=== PATIENT | female | born 1945 | race Caucasian/White ===

== ENCOUNTER → 2019-12-24 14:59 | Outpatient (CLI) | payer MEDICARE, OTHER, SELFPAY ==
--- NOTE | 2019-12-24 15:03 | DI.RAD.S_ITS ---
PROCEDURE: XR LUMBAR SPINE MIN 4V INDICATIONS: LBP TECHNIQUE: 4 views of the lumbar spine were acquired. COMPARISON: Located Within [facility], , L-SPINE 2-3 VIEWS, 11/19/2011, 10:29. FINDINGS: Bones: 5 nonrib-bearing vertebrae are present. Patient is status post right posterior fusion at L3-4 level. No gross hardware loosening or failure is seen. There is mild to moderate dextroscoliosis centered at L3-4 level. Degenerative endplate changes and bilateral facet arthrosis throughout lumbar spine is seen.. No vertebral body compression fractures. No suspicious bony lesions. Soft tissues: Overlying bowel gas pattern is normal. No suspicious soft tissue calcifications. Oblique images: No pars defects. IMPRESSION: Prior right transpedicular fusion at L3-4 level. Mild to moderate dextroscoliosis centered at L3-4 level. No acute fracture or dislocation. No gross hardware complication. Degenerative disc disease throughout lumbar spine. No gross pars defect. Dictated by: Malik Rayo M.D. on 12/24/2019 at 16:46 Approved by: Malik Rayo M.D. on 12/24/2019 at 16:48
== END ==
PROVIDERS: PCP Family Medicine; Referring Provider Family Medicine; Visit Provider Physical Medicine & Rehabilitation
DX: S39.012A Strain of muscle, fascia and tendon of lower back, initial encounter (principal); M41.86 Other forms of scoliosis, lumbar region; M51.36 Other intervertebral disc degeneration, lumbar region; Z98.1 Arthrodesis status
CPT/HCPCS: 72110

== ENCOUNTER → 2020-03-24 12:02 | Outpatient (CLI) | payer MEDICARE, OTHER, SELFPAY ==
--- NOTE | 2020-03-24 12:06 | DI.MRI.S_ITS ---
PROCEDURE: MR LUMBAR SPINE WO CON INDICATIONS: Chronic progressive low back pain status post fusion TECHNIQUE: Noncontrast sagittal T1 spin echo and T2 fast echo, sagittal STIR, axial T1 and T2 fast spin echo through the lumbar spine. In cases with scoliosis, additional coronal T2 fast spin echo may be performed. COMPARISON: 07/30/16. FINDINGS: Image quality: Excellent. Alignment and Curvature: Mild levocurvature centered at L2-L3. Left posterior lateral solomon and pedicle screw fixation at L3-L4. Trace degenerative anterolisthesis of L4 on L5. Trace degenerative retrolisthesis of L2 on L3. Bone Marrow: Marrow is of normal overall signal. No acute vertebral body compression fractures. Spinal Cord: Conus medullaris terminates at the L1-L2 level. Visualized cord demonstrates normal signal and size. Paraspinous Soft Tissues: No paravertebral masses. T11-T12: No canal stenosis or foraminal stenosis. T12-L1: Mild disc bulge. Mild facet hypertrophy. No canal stenosis or foraminal stenosis. L1-L2: Mild disc bulge. Facet hypertrophy. No canal stenosis or foraminal stenosis. L2-L3: Posterior disc bulge. Prominent facet and ligament hypertrophy, right greater than left. Moderate canal stenosis, severe right lateral recess stenosis aerated moderate right foraminal stenosis with flattening deformity and the existing right L2 nerve root. L3-L4: Left posterior lateral solomon and pedicle screw fixation. Facet hypertrophy. Mild canal stenosis. Mild right foraminal stenosis. L4-L5: Disc bulge. Prominent facet and ligament hypertrophy. Interval progression of canal stenosis, now severe. Mild bilateral foraminal stenosis. L5-S1: Disc bulge, facet and ligament hypertrophy. Mild to moderate left foraminal stenosis with mild flattening deformity on the exiting right L5 nerve root. IMPRESSION: 1. Remote left posterior lateral fusion at L3-L4. 2. Moderate canal stenosis at L2-L3, mild canal stenosis at L3-4. 3. Interval progression of canal stenosis at L4-L5, now severe. Dictated by: Rafal Blas M.D. on 03/24/2020 at 13:25 Approved by: Rafal Blas M.D. on 03/24/2020 at 13:36
== END ==
PROVIDERS: PCP Family Medicine; Referring Provider Physical Medicine & Rehabilitation; Visit Provider Physical Medicine & Rehabilitation
DX: M48.061 Spinal stenosis, lumbar region without neurogenic claudication (principal); Z98.1 Arthrodesis status
CPT/HCPCS: 72148

== ENCOUNTER → 2021-04-30 13:21 | Outpatient (CLI) | payer MEDICARE, OTHER, SELFPAY ==
[2021-04-30 15:42] LABS: COVID19 -Nasal RAPID Negative (Negative)
== END ==
PROVIDERS: PCP Family Medicine; Visit Provider Physician Assistant
DX: Z01.812 Encounter for preprocedural laboratory examination (principal); Z20.822 Contact with and (suspected) exposure to COVID-19
CPT/HCPCS: 87635; C9803

== ENCOUNTER 2021-05-01 14:32 | Outpatient (CLI) | payer MEDICARE, OTHER, SELFPAY ==
[2021-05-01] VITALS (8 sets, daily range): BP systolic 150–196; BP diastolic 55–81; PULSE 68–87; RESP 13–18; TEMP 36.1; O2SAT 95–99
--- NOTE | 2021-05-01 14:35 | DI.RAD.S_ITS ---
PROCEDURE: PAIN L/S TRANSFORAMINAL INJECT INDICATIONS: SPONDYLOSIS COMPARISON: None. FINDINGS: Fluoroscopic spot filming was performed to verify placement of spinal needles at the lumbosacral level(s), as labeled on the films. Appropriate location(s) of the needle tip(s) was confirmed by injection of iodinated contrast. IMPRESSION: Needle placement at the lumbosacral level. Dictated by: Veda Carroll M.D. on 05/01/2021 at 16:50 Approved by: Veda Carroll M.D. on 05/01/2021 at 16:50
[2021-05-01] MEDS: MIDAZOLAM 5 MG/5 ML VIAL IV (15:31)
[2021-05-01] MEDS: fentaNYL 100 MCG/2 ML INJ 50 MCG IV (15:31)
[2021-05-01] MEDS: IOPAMIDOL 15 ML VIAL 3 ML INJ (15:34)
[2021-05-01] MEDS: BETAMETHASONE 30 MG/5 ML MDV 6 MG INJ (15:35)
[2021-05-01] MEDS: BUPIVACAINE 0.25% (PF) VIAL 2 ML INJ (15:35)
[2021-05-01] MEDS: DEXAMETHASONE 10 MG/ML VIAL 20 MG INJ (15:36)
--- NOTE | 2021-05-01 15:49 | P.PCN_ITS ---
Date/Time/Diagnoses Date of procedure: 05/01/21 Time of procedure: 15:49 Pre-procedure diagnosis: FORAMINAL STENOSIS WITH LE SYMPTOMS Post-procedure diagnosis: same Procedure Notes Procedure: 1. FLUOROSCOPICALLY GUIDED CONTRAST CONTROLLED TRANSFORAMINAL EPIDURAL STEROID INJECTION - RIGHT L5/S1 TFESI Indications: Selena is referred by Dr. Matthews and Elvia for treatment of Foraminal Stenosis with Right LE Symptoms Physician: Kyrie Madden Total Fluoroscopy time (seconds): 13 Total sedation minutes: 12 Complications: none Procedure in detail & Post-procedure care: FINDINGS Foraminal Nerve Root Compression secondary to disc disease and facet hypertrophy DESCRIPTION OF PROCEDURE Following review of allergy and review of potential side effects and complications, including, but not necessarily limited to, infection, allergic reaction, local tissue breakdown, stroke, temporary or permanent nerve injury, paralysis, and possible , the patient indicated that the patient understood and agreed to proceed. An informed consent document was signed by the patient, witnessed by a nurse, and placed in the patient's chart. Additionally, other treatment options including medications, modalities, and physical therapy were reviewed with the patient. After review of previous anaesthesic history and IV conscious sedation the patient was deemed safe to proceed with today?s procedure with IV conscious sedation as ASA class II designation. Safety time-out was performed to confirm patient ID, procedure to be performed and site of procedure. IV sedation was accomplished with a combination of 2mg of Versed and 50mcg of Fentanyl was administered by the RN after DO order, titrated to patient comfort during the course of the procedure while the patient remained responsive to all verbal commands In the prone position following sterile prep and drape of the lumbar region, the right L5/S1 posterior neuroforamen was identified fluoroscopically. The skin was anesthetized via a 25-gauge 1.5-inch needle with 1% lidocaine solution. At this point, a 25-gauge 3.5-inch spinal needle was atraumatically introduced and advanced under fluoroscopic guidance through the posterior right L5/S1 neuroforamen to approximately the anterior aspect of the canal. Depth was confirmed on lateral view. Following negative aspiration, injection of approximately 1.5cc of Isovue 200 under live fluoroscopy in the AP view confirmed excellent flow along the nerve root, into the epidural space without vascular or intrathecal uptake observed Radiological data, including multiple fluoroscopic views of the lumbosacral spine, reveal a spinal needle at the right L5/S1 posterior neuroforamen. Subsequent views show flow of contrast material flowing superiorly and inferiorly along the nerve root confirming epidural flow. Subsequently, a test dose of 1.5 cc of 1% lidocaine solution was administered and patient was observed for two minutes for signs or symptoms of complications, including abdominal pain, shortness of breath, bilateral upper or lower extremity weakness, nausea and vomiting, prior to steroid injection. At this point, a total of 3cc or 20mg of dexamethasone and 6mg of betamethasone was injected without incident. The procedure tolerated the procedure well without signs or symptoms of complications prior to transfer to the recovery area continued monitoring without incident. The patient was then transferred to the recovery area where they were observed for an appropriate time after the injection. The patient reported a VAS score of 7 prior to the procedure and a post- procedure VAS of 0. POST OP INSTRUCTIONS The patient was provided a Pain Log to continue to record their response to the target-specific procedure prior to follow-up visit with their referring physician. Additionally, specific post-injection care instructions and a contact number to our office were provided if concerns arise regarding possible complications associated with the procedure are suspected.
--- NOTE | 2021-05-01 16:26 | PC.NURSE ---
Patient with bilateral lower extremity weakness. Attempt to stand unsuccessful.
--- NOTE | 2021-05-01 16:52 | PC.NURSE ---
Dr. Madden's attempted to stand patient. Slightly improved strength but still unable to hold her weight longer than a few seconds without wavering. Daughter Sona updated on discharge status.
== END 2021-05-01 17:28 | disposition home or self-care (01) ==
LOC: RAD 14:34
PROVIDERS: PCP Family Medicine; Referring Provider Physical Medicine & Rehabilitation; Visit Provider Physical Medicine & Rehabilitation
DX: M48.07 Spinal stenosis, lumbosacral region (principal); M51.17 Intervertebral disc disorders with radiculopathy, lumbosacral region
CPT/HCPCS: 64483; 99152; J0702; J1100; J2250; J3010

== ENCOUNTER 2022-05-31 08:59 | Emergency (ER) | payer MEDICARE, OTHER, SELFPAY ==
[2022-05-31 09:33] VITALS: BP 185/78; PULSE 77; RESP 18; TEMP 36.6; O2SAT 98; BMI 33.4
--- NOTE | 2022-05-31 09:38 | DI.RAD.S_ITS ---
PROCEDURE: XR WRIST RT MIN 3V INDICATIONS: pain TECHNIQUE: 4 views of the wrist were acquired. COMPARISON: None. FINDINGS: Bones: No fractures or dislocations. No suspicious bony lesions. Scaphoid view: Scaphoid is intact. Soft tissues: No suspicious soft tissue calcifications. IMPRESSION: No fracture. No osseous lesion. If symptoms and/or clinical suspicion for pathology persists, further assessment with repeat radiographs (7-10 days) or advanced imaging (e.g. CT, MRI or bone scan) should be considered. Dictated by: Emelina Quinones MD, PhD on 05/31/2022 at 9:58 Approved by: Emelina Quinones MD, PhD on 05/31/2022 at 9:59
--- NOTE | 2022-05-31 10:04 | ED.UPPEXIN ---
HPI - Extremity Injury (Upper) General Chief Complaint: Extremity Injury, Upper Stated Complaint: Right wrist pain Time Seen by Provider: 05/31/22 10:04 Source: patient Mode of arrival: Ambulatory History of Present Illness HPI narrative: Patient is a evans 68 female history of hypertension diabetes presenting today with chronic ongoing right wrist pain. She says progressively getting worse. 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 She is quite upset because her is disabled from stroke when she has to do all the cooking and hurts. She has been taking Aleve and meloxicam for without any relief. She denies numbness or tingling. Related Data Home Medications Medication Instructions Recorded Confirmed metformin 500 mg tablet,extended 1,000 mg PO BID ##0 11/14/11 03/15/20 release 24 hr (Glucophage XR) blood sugar diagnostic ##1 03/15/20 03/15/20 levothyroxine 75 mcg tablet mcg PO DAILY 03/15/20 03/15/20 metformin 1,000 mg tablet mg PO DAILY 03/15/20 03/15/20 Previous Rx's Medication Instructions Recorded diazepam 5 mg tablet 5 mg PO .COMPLEX PRN MRI #7 tabs 03/15/20 gabapentin 300 mg capsule 300 mg PO .COMPLEX #90 caps 06/21/21 hydrocodone 5 mg-acetaminophen 325 1 tab PO Q6H PRN pain #10 tabs 05/31/22 mg tablet Allergies Allergy/AdvReac Type Severity Reaction Status Date / Time No Known Drug Allergies Allergy Unverified 03/15/20 11:24 Review of Systems Review of Systems Narrative: GENERAL: Denies chills,fever HEENT: Denies throat pain RESPIRATORY: Denies dyspnea, cough, wheezing CARDIOVASCULAR: Denies chest pain, palpitations GASTROINTESTINAL: Denies nausea, vomiting MUSCULOSKELETAL: See HPI SKIN: No rash, no laceration, no pruritus NEUROLOGIC: Denies weakness, dizziness, headache, numbness 8 point review of systems is negative except for those stated above and HPI Patient History Medical History Diabetes Herniated nucleus pulposus, L2-3 Lumbar radiculopathy Multilevel spinal stenosis Surgical History History of lumbar fusion Family History Father Pancreatic cancer Heart disease Mother Aneurysm Brother Diabetes mellitus Heart attack End stage kidney disease Social History Smoking Status: Never smoker Smoking Status: Never smoker Exam Initial Vital Signs Initial Vital Signs: Vital Signs Temperature 98 F 05/31/22 09:33 Pulse Rate 77 05/31/22 09:33 Respiratory Rate 18 05/31/22 09:33 Blood Pressure 185/78 H 05/31/22 09:33 Pulse Oximetry 98 05/31/22 09:33 Oxygen Delivery Method 05/31/22 09:33 GENERAL: Well-appearing, well-nourished and in no acute distress. CARDIOVASCULAR: peripheral pulses in tact, cap refill <2 sec RESPIRATORY: No respiratory distress, speaks in full sentences without difficulty EXTREMITIES: Normal range of motion, no clubbing or edema. Neurovascularly intact Mild right wrist pain no significant swelling or erythema able to flex and extend. Able to move all fingers distal radial pulse intact NEUROLOGICAL: Cranial nerves II through XII grossly intact. Normal gait and speech. SKIN: Warm, dry, no petechiae, no rashes or lesions. Course Orders Ordered: ED Orders 05/31/22 09:38 XR wrist RT min 3V Stat Vital Signs Vital signs: Vital Signs - 8 hr 05/31/22 09:33 Temperature 98 F Pulse Rate 77 Respiratory Rate 18 Blood Pressure 185/78 H Pulse Oximetry 98 Oxygen Delivery Method Room Air MDM - Extremity Injury (Upper) Imaging Data Extremity x-ray #1: Radiologist's Impression: [facility] [place] [id number] XRay Report Signed Patient: Selena Danielson MR#: [id number] : 1945 Acct:[id number] Age/Sex: 76 / F Date of Service: 05/31/22 Loc: ED Accession Number: [id number] ?? Procedure: XR wrist RT min 3V Ordering Provider: Samara Roberson D.O. PROCEDURE:? XR WRIST RT MIN 3V ? INDICATIONS: pain ? TECHNIQUE:? 4 views of the wrist were acquired.? ? COMPARISON:? None. ? FINDINGS:? ? Bones:? No fractures or dislocations.? No suspicious bony lesions.? ? Scaphoid view:? Scaphoid is intact. ? Soft tissues:? No suspicious soft tissue calcifications.? ? IMPRESSION:? No fracture. No osseous lesion. If symptoms and/or clinical suspicion for pathology persists, further assessment with repeat radiographs (7-10 days) or advanced imaging (e.g. CT, MRI or bone scan) should be considered. ? ? Dictated by: Emelina Quinones MD, PhD on 05/31/2022 at 9:58 ? ? MDM Narrative Medical decision making narrative: At this time patient is taking meloxicam 15 mg along with leave. She needs something stronger she is already wearing a wrist brace. However it is quite old. Will give her a new 1 and something stronger for pain Discharge Plan Departure Patient Disposition: Home Clinical Impression: Sprain and strain of right wrist Instructions: Wrist Sprain Activity Restrictions/Additional Instructions: *You have been diagnosed with right wrist sprain *What to do: At this time wear splint as needed. Elevate ice. Rest and let it heal *Continue to take medications as directed Meloxicam 15 mg once a day (do not take Aleve, ibuprofen, naproxen, Motrin or other NSAIDS with this) [place] 1 tablet every 6 hours if needed for severe pain- SENT TO [facility] Tylenol 650 mg at every 6 hours if needed for [id number] *Follow up with your primary care provider in 2-3 days or call [phone] *Return to ER if you should have increasing pain swelling weakness [or] any new, worsening or concerning symptoms CONTROLLED SUBSTANCE DISCHARGE (Narcotoic/benzodiazepine/Flexeril/Phenergan) 1. You have been prescribed narcotic medications, it does have acetaminophen/Tylenol/paracetamol in it, DO NOT TAKE MORE THAN 4,00mg in 24 hours of Tylenol. TRAMADOL DOES NOT CONTAIN TYLENOL 2. Please understand that we cannot provide further refills of narcotics, benzodiazepines or controlled substances through the ED and her pain management will need to be through your provider. 3. While on these medications you cannot drive or operate heavy machinery. 4. You cannot sign legal documents or perform any duties such as this. 5. As long as you're taking opiate pain medications he should also be taking a stool softener such as Colace, Dulcolax, MiraLAX or prune juice, to help avoid constipation. Prescriptions: New hydrocodone-acetaminophen 5-325 mg tablet 1 tab PO Q6H PRN (Reason: pain) Qty: 10 0RF No Action metformin [Glucophage XR] 500 MG tablet extended release 24 hr 1,000 mg PO BID Qty: 0 gabapentin 300 mg capsule 300 mg PO .COMPLEX Qty: 90 2RF Rx Instructions: 1-2 PO Tid to begin at HS and titrate to pain relief metformin 1,000 mg tablet PO DAILY levothyroxine 75 mcg tablet PO DAILY (DME) blood sugar diagnostic Strip See Rx Instructions .ROUTE .MEDSUPPLY Qty: 1 Rx Instructions: As directed diazepam 5 mg tablet 5 mg PO .COMPLEX PRN (Reason: MRI) Qty: 7 0RF Rx Instructions: 5 mg PO 1-2 tabs pre-procedure and 1 tab npcturnally for possible steroid flare PRN; Referrals: Sekou Anna MD [Primary Care Provider] - Visit Report Forms: Patient Portal/API
== END 2022-05-31 10:34 | disposition home or self-care (01) ==
PROVIDERS: Emergency Provider Emergency Medicine; PCP Orthopaedic Surgery
DX: S63.501A Unspecified sprain of right wrist, initial encounter (principal); S66.911A Strain of unspecified muscle, fascia and tendon at wrist and hand level, right hand, initial encounter
CPT/HCPCS: 73110; 99282; 99283

== ENCOUNTER 2022-10-03 09:26 | Emergency (ER) | payer MEDICARE, OTHER, SELFPAY ==
[2022-10-03 09:58] VITALS: BP 160/79; PULSE 98; RESP 15; TEMP 36.4; O2SAT 99; BMI 29.2
--- NOTE | 2022-10-03 12:02 | PC.NURSE ---
pt states she has had tailbone pain for 1.5 months. she has history of chronic back pain but this is different, she has seen a doctor and been prescribed muscle relaxors, these are not helping, she needs to schedule an appointment for an epidural pain injection but has not been able to so far. she is also having troubles with constipation for about one month. LBM yesterday. she states it is sometimes just mucous that comes out but she does not take stool softeners and laxatives because it does come out, it just feels hard and sometimes she cant go right away
--- NOTE | 2022-10-03 12:06 | DI.CT.S_ITS ---
PROCEDURE: CT ABDOMEN PELVIS W CON INDICATIONS: Lower abdominal pain TECHNIQUE: After the administration of intravenous contrast, axial sections acquired from the lung bases to the pubic symphysis. Coronal and sagittal reformats were performed. For radiation dose reduction, the following was used: automated exposure control, adjustment of mA and/or kV according to patient size. COMPARISON: None. FINDINGS: Image quality: Adequate. Lung bases: No pleural effusion. ABDOMEN: Liver: Unremarkable. Gallbladder: Surgically absent. Biliary ducts: Unremarkable. Pancreas: Unremarkable. Spleen: Unremarkable. Adrenal Glands: Unremarkable. Kidneys and Ureters: No hydronephrosis. Stomach and Bowel: No bowel obstruction. Moderate predominantly sigmoid colonic diverticulosis without evidence of acute diverticulitis. Peritoneum: No abnormal intraperitoneal fluid. No free air. Abdominal Nodes: No retroperitoneal or mesenteric adenopathy by size criteria. Vessels: Aorta and inferior vena cava are normal in size. PELVIS: Pelvic Organs: The uterus is not visualized and is presumed surgically absent. Bladder: Unremarkable. Pelvic Nodes: No enlarged lymph nodes. Bones: Multilevel degenerative change of the visualized spine. Postsurgical changes from prior L2-L5 fusion. IMPRESSION: 1. No acute appearing abnormality identified within the abdomen or pelvis. 2. Moderate colonic diverticulosis without evidence of acute diverticulitis. Dictated by: Andrae Aaron M.D. on 10/03/2022 at 13:19 Approved by: Andrae Aaron M.D. on 10/03/2022 at 13:33
--- NOTE | 2022-10-03 12:07 | ED_ITS ---
HPI - Extremity Problem General Chief complaint: Extremity Problem,Nontraumatic Stated complaint: tail bone pain,stomach pain,soft/hard BM Time Seen by Provider: 10/03/22 11:43 Source: patient Mode of arrival: Wheelchair History of Present Illness HPI Narrative: Patient here for abdominal pain/constipation also has complaints of sacral/ coccyx pain. Patient has long history of chronic back pain. Has had lumbar surgery. Has had epidural shots in the past. Please see MRI reports below as well as lumbar injection procedures below. Patient states this episode started with sacral/coccyx pain 1 month ago. Saw family doctor but she states no medications or procedures or images or tests were ordered. She followed up recently again with another provider in the group and baclofen was prescribed and referral for epidural was started but no appointment time has been established. No loss of control of bowel or bladder. No saddle paresthesia. Patient states she is developed mucousy stool in the past 2 or 4 weeks. Has had intermittent constipation but no diarrhea. She is having bowel movements. No recent colonoscopy. No leg or foot weakness. Patient [place] [address] Magnetic Resonance Report Signed Patient: Selena Danielson MR#: [id number] : 1945 Acct:[id number] Age/Sex: 74 / F Date of Service: 03/24/20 Loc: MRI Accession Number: [id number] ?? Procedure: MR lumbar spine wo con Ordering Provider: Kyrie Madden D.O. PROCEDURE:? MR LUMBAR SPINE WO CON ? INDICATIONS:? Chronic progressive low back pain status post fusion ? TECHNIQUE:? Noncontrast sagittal T1 spin echo and T2 fast echo, sagittal STIR, axial T1 and T2 fast spin echo through the lumbar spine.? In cases with scoliosis, additional coronal T2 fast spin echo may be performed.? ? COMPARISON: 07/30/16. ? FINDINGS:? Image quality:? Excellent.? ? Alignment and Curvature: Mild levocurvature centered at L2-L3. Left posterior lateral solomon and pedicle screw fixation at L3-L4. Trace degenerative anterolisthesis of L4 on L5. Trace degenerative retrolisthesis of L2 on L3. ? Bone Marrow:? Marrow is of normal overall signal.? No acute vertebral body compression fractures.? ? Spinal Cord:? Conus medullaris terminates at the L1-L2 level.? Visualized cord demonstrates normal signal and size.? ? Paraspinous Soft Tissues:? No paravertebral masses. ? T11-T12: No canal stenosis or foraminal stenosis. ? T12-L1: Mild disc bulge. Mild facet hypertrophy. No canal stenosis or foraminal stenosis. ? ? L1-L2: Mild disc bulge. Facet hypertrophy. No canal stenosis or foraminal sten osis. ? L2-L3: Posterior disc bulge. Prominent facet and ligament hypertrophy, right greater than left. Moderate canal stenosis, severe right lateral recess stenosis aerated moderate right foraminal stenosis with flattening deformity and the existing right L2 nerve root. ? L3-L4: Left posterior lateral solomon and pedicle screw fixation. Facet hypertrophy. Mild canal stenosis. Mild right foraminal stenosis. ? L4-L5: Disc bulge. Prominent facet and ligament hypertrophy. Interval progression of canal stenosis, now severe. Mild bilateral foraminal stenosis. ? L5-S1: Disc bulge, facet and ligament hypertrophy. Mild to moderate left foraminal stenosis with mild flattening deformity on the exiting right L5 nerve root. ? IMPRESSION: 1. Remote left posterior lateral fusion at L3-L4. 2. Moderate canal stenosis at L2-L3, mild canal stenosis at L3-4. 3. Interval progression of canal stenosis at L4-L5, now severe. ? Dictated by: Rafal Blas M.D. on 03/24/2020 at 13:25 ? ? Approved by: Rafal Blas M.D. on 03/24/2020 at 13:36 ? [address] [address] XRay Report Signed Patient: Selena Danielson MR#: [id number] : 1945 Acct:[id number] Age/Sex: 75 / F Date of Service: 05/01/21 Loc: RAD Accession Number: [id number] ?? Procedure: PAIN l/s transforaminal inject Ordering Provider: Kyrie Madden D.O. PROCEDURE:? PAIN L/S TRANSFORAMINAL INJECT ? INDICATIONS:? SPONDYLOSIS ? COMPARISON:? None. ? FINDINGS:? Fluoroscopic spot filming was performed to verify placement of spinal needles at the lumbosacral level(s), as labeled on the films.? Appropriate location(s) of the needle tip(s) was confirmed by injection of iodinated contrast.? ? IMPRESSION:? Needle placement at the lumbosacral level. ? ? Dictated by: Veda Carroll M.D. on 05/01/2021 at 16:50 ? ? Approved by: Veda Carroll M.D. on 05/01/2021 at 16:50 ? Related Data Home Medications Medication Instructions Recorded Confirmed metformin 500 mg tablet,extended 1,000 mg PO BID ##0 11/14/11 03/15/20 release 24 hr (Glucophage XR) blood sugar diagnostic ##1 03/15/20 03/15/20 levothyroxine 75 mcg tablet mcg PO DAILY 03/15/20 03/15/20 metformin 1,000 mg tablet mg PO DAILY 03/15/20 03/15/20 Previous Rx's Medication Instructions Recorded diazepam 5 mg tablet 5 mg PO .COMPLEX PRN MRI #7 tabs 03/15/20 gabapentin 300 mg capsule 300 mg PO .COMPLEX #90 caps 06/21/21 hydrocodone 5 mg-acetaminophen 325 1 tab PO Q6H PRN pain #10 tabs 05/31/22 mg tablet Allergies Allergy/AdvReac Type Severity Reaction Status Date / Time No Known Drug Allergies Allergy Verified 10/03/22 09:58 Review of Systems Review of Systems Narrative: GENERAL: negative chills, fatigue, malaise, fever, sweats. HEENT: negative sinus pain, ear pain, sore throat RESPIRATORY: negative dyspnea, cough CARDIOVASCULAR: negative chest pain, palpitations GASTROINTESTINAL: negative nausea, vomiting, positive diarrhea/constipation/abdominal pain : negative dysuria, frequency, hematuria MUSCULOSKELETAL: negative muscle or bony pain, positive back pain SKIN: negative rash, skin lesions NEUROLOGIC: negative weakness, numbness Patient History Medical History Diabetes Herniated nucleus pulposus, L2-3 Lumbar radiculopathy Multilevel spinal stenosis Surgical History History of lumbar fusion Family History Father Pancreatic cancer Heart disease Mother Aneurysm Brother Diabetes mellitus Heart attack End stage kidney disease Social History Smoking Status: Never smoker Smoking Status: Never smoker alcohol intake frequency: holidays/special occasions only Substance Use Type: does not use Exam Narrative Exam Narrative: GENERAL: in no distress, not toxic not dyspneic, 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 EYES: Pupils equal round No scleral icterus. ENT: Mucous membranes moist. NECK: Trachea midline. CARDIOVASCULAR: Regular rate and rhythm without murmurs RESPIRATORY: Clear to auscultation. Breath sounds equal bilaterally. No wheezes, rales, or rhonchi. GASTROINTESTINAL: Abdomen soft, non-tender, bowel sounds are present no peritoneal signs no pain out of proportion to exam EXTREMITIES: No gross deformities. BACK: No flank tenderness. There is reproducible midline lower sacral/upper coccyx tenderness but no pilonidal cyst or abscess or fluctuance, no overlying skin erythema edema or ulcer. NEURO: AOx4. SKIN: Warm and dry PSYCH: Not anxious, is cooperative Initial Vital Signs Initial Vital Signs: Vital Signs Temperature 97.5 F L 10/03/22 09:58 Pulse Rate 98 H 10/03/22 09:58 Respiratory Rate 15 10/03/22 09:58 Blood Pressure 160/79 H 10/03/22 09:58 Pulse Oximetry 99 10/03/22 09:58 Oxygen Delivery Method 10/03/22 09:58 Course Course Course Narrative: No new issues during course of stay Orders Ordered: ED Orders 10/03/22 12:06 CT abdomen pelvis w con Stat Complete Blood Count AUTO DIFF Stat Comprehensive Metabolic Panel Stat Discontinued Medications Ketorolac Tromethamine (Ketorolac 30 Mg/Ml Vial) 15 mg IV NOW ONE Stop: 10/03/22 13:21 Last Admin: 10/03/22 14:02 Dose: 15 mg Documented By: NR Reevaluation(s) Reevaluation #1: Patient resting comfortably with her eyes closed lying supine. Reviewed results with patient. She states her last colonoscopy was over 10 years ago. She states she will need a referral and I have given her general surgery Dr. Pruett referral for colonoscopy. Exam and imaging and blood work are reassuring. Pain is controlled. She will follow up with her family doctor to find out scheduling time for her epidural shots Time: 14:02 Vital Signs Vital signs: Vital Signs - 8 hr 10/03/22 14:21 Temperature 98.1 F Pulse Rate 66 Respiratory Rate 16 Blood Pressure 146/62 H Pulse Oximetry 100 Oxygen Delivery Method Room Air MDM - Extremity (Nontraumatic) Differential Diagnosis Differential diagnosis: Likely other (Pilonidal cyst/sacral/coccyx fracture/chronic pain of the back. Bowel obstruction/constipation/colitis) Lab Data Result diagrams: 10/03/22 12:06 10/03/22 12:06 Labs: Lab Results 10/03/22 10/03/22 Range/Units 12:06 12:06 WBC 6.8 (4.5-11.0) X10^3/uL RBC 4.20 (4.0-5.2) X10^6/uL Hgb 12.9 (12.0-16.0) g/dL Hct 37.5 (36-46) % MCV 89.4 (80-100) fL MCH 30.7 (26-34) PG MCHC 34.4 (30-36) % RDW 13.7 (11.6-14.8) % Plt Count 243 (150-400) X10^3/uL Neut % (Auto) 63.1 (50-75) % Lymph % (Auto) 28.0 (25-40) % Gilliam % (Auto) 5.5 (3-14) % Eos % (Auto) 2.3 (2-4) % Baso % (Auto) 1.1 (0-2) % Neut # (Auto) 4300 (6870-3481) /uL Lymph # (Auto) 1900 (3064-1245) /uL Gilliam # (Auto) 400 (0-900) /uL Eos # (Auto) 200 (0-450) /uL Baso # (Auto) 100 (0-100) /uL Sodium 137 (137-145) mmol/L Potassium 3.5 (3.4-5.1) mmol/L Chloride 103 (98-107) mmol/L Carbon Dioxide 29 (22-32) mmol/L BUN 11 (7-17) mg/dL Creatinine 0.65 (0.52-1.04) mg/dL Estimated GFR > 60 (>60) mL/min BUN/Creatinine Ratio 16.9 (6-22) Glucose 135 H (80-110) mg/dL Calcium 9.1 (8.4-10.2) mg/dL Total Bilirubin 0.5 (0.2-1.3) mg/dL AST 19 (14-36) IU/L ALT 21 (<35) IU/L Alkaline Phosphatase 66 (38-126) U/L Total Protein 7.0 (6.3-8.2) g/dL Albumin 3.9 (3.5-5.0) g/dL Globulin 3.1 (1.7-4.1) g/dL Albumin/Globulin Ratio 1.3 (1.0-2.8) Imaging Data CT scan - abdomen/pelvis: Radiologist's Impression: [address] [address] [address] Scan Report Signed Patient: Selena Danielson MR#: [id number] : 1945 Acct:[id number] Age/Sex: 77 / F Date of Service: 10/03/22 Loc: ED Accession Number: [id number] ?? Procedure: CT abdomen pelvis w con Ordering Provider: Obie Boss MD PROCEDURE:? CT ABDOMEN PELVIS W CON ? INDICATIONS:? Lower abdominal pain ? TECHNIQUE:? After the administration of intravenous contrast, axial sections acquired from the lung bases to the pubic symphysis.? Coronal and sagittal reformats were performed.? For radiation dose reduction, the following was used:? automated exposure control, adjustment of mA and/or kV according to patient size.? ? COMPARISON:? None. ? FINDINGS:? Image quality:? Adequate. ? Lung bases:? No pleural effusion. ? ABDOMEN: Liver:? Unremarkable.? ? Gallbladder:? Surgically absent.? ? Biliary ducts:? Unremarkable.? ? Pancreas:? Unremarkable.? ? Spleen:? Unremarkable.? ? Adrenal Glands:? Unremarkable.? ? Kidneys and Ureters:? No hydronephrosis. ? Stomach and Bowel:? No bowel obstruction.? Moderate predominantly sigmoid colonic diverticulosis without evidence of acute diverticulitis. Peritoneum:? No abnormal intraperitoneal fluid.? No free air.? ? Abdominal Nodes:? No retroperitoneal or mesenteric adenopathy by size criteria.? Vessels:? Aorta and inferior vena cava are normal in size.? ? PELVIS: Pelvic Organs:? The uterus is not visualized and is presumed surgically absent. Bladder:? Unremarkable.? ? Pelvic Nodes: No enlarged lymph nodes.? ? Bones:? Multilevel degenerative change of the visualized spine.? Postsurgical changes from prior L2-L5 fusion. ? ? IMPRESSION:? 1. No acute appearing abnormality identified within the abdomen or pelvis. 2. Moderate colonic diverticulosis without evidence of acute diverticulitis.? ? ? Dictated by: Andrae Aaron M.D. on 10/03/2022 at 13:19 ? ? Approved by: Andrae Aaron M.D. on 10/03/2022 at 13:33 ? MDM Narrative Medical decision making narrative: Appropriate for discharge home. Exam and laboratory studies and imaging are reassuring. Pain is controlled. Referral general surgery for colonoscopy give n. Return precautions reviewed with patient. She desires discharge home Discharge Plan Departure Patient Disposition: Home Clinical Impression: Chronic back pain, Diverticulosis Instructions: DI for Low Back Pain, DI for Diverticulosis Activity Restrictions/Additional Instructions: Call your family doctor to schedule appointment time for your epidural shots for your back pain. Call Dr. Pruett general surgery office today to schedule for colonoscopy. May continue home medications. Return if worse if any questions or concerns Prescriptions: No Action metformin [Glucophage XR] 500 MG tablet extended release 24 hr 1,000 mg PO BID Qty: 0 gabapentin 300 mg capsule 300 mg PO .COMPLEX Qty: 90 2RF Rx Instructions: 1-2 PO Tid to begin at HS and titrate to pain relief hydrocodone-acetaminophen 5-325 mg tablet 1 tab PO Q6H PRN (Reason: pain) Qty: 10 0RF metformin 1,000 mg tablet PO DAILY levothyroxine 75 mcg tablet PO DAILY (DME) blood sugar diagnostic Strip See Rx Instructions .ROUTE .MEDSUPPLY Qty: 1 Rx Instructions: As directed diazepam 5 mg tablet 5 mg PO .COMPLEX PRN (Reason: MRI) Qty: 7 0RF Rx Instructions: 5 mg PO 1-2 tabs pre-procedure and 1 tab npcturnally for possible steroid flare PRN; Referrals: Simin Augustine PA-C [Primary Care Provider] - Saravanan Pruett MD [Physician] - Visit Report Forms: Patient Portal/API
[2022-10-03 12:29] LABS: Add Manual Diff / Slide Review NO; Basophils Absolute Auto 100 /uL (0-100); Basophils Percent Auto 1.1 % (0-2); Eosinophils Absolute Auto 200 /uL (0-450); Eosinophils Percent Auto 2.3 % (2-4); Hematocrit 37.5 % (36-46); Hemoglobin 12.9 g/dL (12.0-16.0); Lymphocytes Absolute Auto 1900 /uL (1100-4500); Mean Corpuscular HGB Conc 34.4 % (30-36); Mean Corpuscular Hemoglobin 30.7 PG (26-34); Mean Corpuscular Volume 89.4 fL (80-100); Monocytes Absolute Auto 400 /uL (0-900); Monocytes Percent Auto 5.5 % (3-14); Neutrophils Absolute Auto 4300 /uL (1500-7000); Neutrophils Percent Auto 63.1 % (50-75); Platelet Count 243 X10^3/uL (150-400); Red Cell Distribution Width 13.7 % (11.6-14.8); White Blood Cell Count 6.8 X10^3/uL (4.5-11.0)
[2022-10-03 12:36] LABS: Alanine Aminotransferase 21 IU/L (<35); Albumin 3.9 g/dL (3.5-5.0); Albumin Globulin Ratio 1.3 (1.0-2.8); Alkaline Phosphatase 66 U/L (38-126); Aspartate Aminotransferase 19 IU/L (14-36); BUN Creatinine Ratio 16.9 (6-22); Bilirubin Total 0.5 mg/dL (0.2-1.3); Blood Urea Nitrogen 11 mg/dL (7-17); Calcium 9.1 mg/dL (8.4-10.2); Carbon Dioxide 29 mmol/L (22-32); Chloride 103 mmol/L (98-107); Estimated Glomerular Filt Rate > 60 mL/min (>60); Globulin 3.1 g/dL (1.7-4.1); Glucose 135 mg/dL (80-110); HEMOLYSIS < 15 (0-50); Potassium 3.5 mmol/L (3.4-5.1); Sodium 137 mmol/L (137-145)
[2022-10-03] MEDS: KETOROLAC 30 MG/ML VIAL 15 MG IV (14:02)
[2022-10-03 14:21] VITALS: BP 146/62; PULSE 66; RESP 16; TEMP 36.7; O2SAT 100
== END 2022-10-03 14:24 | disposition home or self-care (01) ==
PROVIDERS: Emergency Provider Emergency Medicine; PCP Physician Assistant
DX: M54.50 Low back pain, unspecified (principal); G89.29 Other chronic pain; K57.30 Diverticulosis of large intestine without perforation or abscess without bleeding
CPT/HCPCS: 36415; 74177; 80053; 85025; 96374; 99284; J1885; Q9967

== ENCOUNTER → 2022-10-29 11:33 | Outpatient (CLI) | payer MEDICARE, OTHER, SELFPAY ==
[2022-10-29 12:38] LABS: COVID19 -Nasal RAPID Negative (Negative)
== END ==
PROVIDERS: PCP Physician Assistant; Visit Provider Surgery
DX: Z20.822 Contact with and (suspected) exposure to COVID-19 (principal)
CPT/HCPCS: 87635

== ENCOUNTER 2022-10-29 11:38 | Day surgery (SDC) | payer MEDICARE, OTHER, SELFPAY ==
--- NOTE | 2022-10-29 | PATH_ITS ---
[facility] Accession Number: [id number] . 01 Material submitted: . colon - ASCENDING COLON POLYP . 01 Diagnosis: Ascending Colon, Polyp, Biopsy: Tubular adenoma. [facility] 10/31/2022 1133 Local . 01 Electronically signed: . Kavitha Gregg MD, Pathologist NPI- [id number] . 01 Gross description: . ASCENDING COLON POLYP: Received in formalin are 2 fragment(s) of bloom, soft tissue measuring 0.7 x 0.4 x 0.3 cm to 0.7 x 0.2 x 0.2 cm submitted entirely in 1 cassette(s) /CPE 10/30/2022 0902 Local . 01 Pathologist provided ICD-10: D12.2 . 01 CPT . 025435 Specimen Comment: A courtesy copy of this report has been sent to [phone] Performed at: 01 [facility] [address] [place] [address], [place], [place] [id number] MD Nas Escalona MD Phone: [phone]
[2022-10-29 12:36] VITALS: BP 183/90; PULSE 98; RESP 16; TEMP 36.2; O2SAT 95; BMI 28.3
[2022-10-29] MEDS: LACTATED RINGERS 1,000 ML 200 ML IV (13:04)
--- NOTE | 2022-10-29 14:36 | PM.HP.1 ---
History of Present Illness History of Present Illness Date Patient Seen: 10/29/22 Time Patient Seen: 14:36 [place] [facility] [place]arrative: 77-year-old woman here for diagnostic colonoscopy. She reports altered bowel function for the past several months with what she describes as mucus in her stool as well as constipation which is new for her. She would previous colonoscopy 10 years ago which was normal. No personal or family history of intestinal malignancy. No blood per rectum or unintentional weight loss. Recent CT abdomen pelvis without abnormality Patient History Medical History (Updated 10/29/22 @ 14:38 by Saravanan Pruett MD) Diabetes Herniated nucleus pulposus, L2-3 Lumbar radiculopathy Multilevel spinal stenosis Surgical History (Updated 10/29/22 @ 12:22 by Kori Rios RN) H/O: section H/O: hysterectomy History of back surgery History of bladder suspension procedure History of carpal tunnel surgery History of lumbar fusion History of tonsillectomy Family & Social History Family History Father Pancreatic cancer Heart disease Mother Aneurysm Brother Diabetes mellitus Heart attack End stage kidney disease Social History: household members spouse Tobacco & Substance use: Smoking Status Never smoker alcohol intake frequency holiday/special occasion Substance Use Type does not use Meds Home Medications and Allergies Home Medications Medication Instructions Recorded Confirmed Type blood sugar diagnostic ##1 03/15/20 03/15/20 History metformin 1,000 mg tablet 1,000 mg PO BID 03/15/20 10/29/22 History sodium,potassium,mag sulfates 17.5 See Rx Instructions PO .COMPLEX 10/08/22 10/29/22 Rx gram-3.13 gram-1.6 gram oral soln #354 mL (Suprep Bowel Prep Kit) amlodipine 2.5 mg tablet See Rx Instructions .Route .COMPLEX 10/29/22 10/29/22 History levothyroxine 75 mcg tablet See Rx Instructions .Route .COMPLEX 10/29/22 10/29/22 History (Synthroid) lisinopril 20 mg tablet 20 mg PO DAILY 10/29/22 10/29/22 History meloxicam 15 mg tablet See Rx Instructions .Route .COMPLEX 10/29/22 10/29/22 History sertraline 50 mg tablet 50 mg PO DAILY 10/29/22 10/29/22 History simvastatin 20 mg tablet See Rx Instructions .Route .COMPLEX 10/29/22 10/29/22 History Allergies Allergy/AdvReac Type Severity Reaction Status Date / Time No Known Drug Allergies Allergy Verified 10/29/22 12:22 Exam Vital Signs (past 8 hours): - 10/29/22 12:36 Temperature 97.1 F L Pulse Rate 98 H Respiratory Rate 16 Blood Pressure 183/90 H Pulse Oximetry 95 Oxygen Delivery Method Room Air Oxygen Delivery Method Room Air Narrative Exam Narrative: General elderly woman alert oriented no distress Abdomen soft nontender nondistended Assessment & Plan Assessment and plan (1) Altered bowel function: Status: Acute Assessment & Plan narrative: 77-year-old woman with altered bowel function here for diagnostic colonoscopy. procedural risks including bleeding, missed diagnosis, intestinal perforation, anesthetic complication were discussed. Questions have been answered and she is in agreement with this plan Time Spent With Patient Critical Care time: I spent a total of [] minutes of critical care time on this patient's care today; this time is exclusive of procedural time.
--- NOTE | 2022-10-29 14:45 | PM.OP.COLON ---
Operative Date/Time/Diagnoses Date of procedure: 10/29/22 Time of procedure: 14:45 Pre-op diagnosis: Altered bowel habit Post-op diagnosis: same Procedure & Clinicians Study performed: Colonoscopy Same procedure as scheduled: Yes Indications: Altered bowel function Surgeon: Saraavnan Pruett Procedure Notes Procedure in detail: The history and physical was performed/updated and the patient is ASA class is 3. The procedure was discussed in detail with the patient. Potential risks complications including infection, bleeding, missed diagnosis, perforation, need for surgery, and were explained. Their questions were answered and informed consent was obtained. Patient was brought to the procedure room and placed standard monitoring equipment. The patient's vital signs were monitored continuously throughout the entire procedure. Prior to starting time-out was performed. The patient was placed in the left lateral recumbent position. Procedural sedation was administered by anesthesia. Examination began with a thorough inspection of the perianal area there was no evidence of fissures, fistulae, external hemorrhoids or cutaneous malignancy. The colonoscopy scope was then placed into the anal canal and was advanced to the cecum, which was identified by the ileocecal valve, the appendiceal orifice and the confluence of the taenia. The scope was then slowly withdrawn examining colon thoroughly in all directions, irrigating it of any residual stool. FINDINGS 1. 1 cm flat polyp within the ascending colon removed with cold snare 2. Sigmoid mild diverticulosis The patient tolerated the procedure well. They will be discharged once criteria are met. The prep was of good/excellent quality. The withdrawl time was 8 minutes. Specimen(s): other (Ascending colon polyp) Impression: Colonic polyp Post-procedure Recommendations: High fiber diet Plan for aftercare: Follow-up is dependent on pathology findings Disposition: same day surgery
[2022-10-29 15:09] VITALS: BP 154/67; PULSE 90; RESP 18; TEMP 36.4; O2SAT 96
[2022-10-29 15:14] VITALS: BP 192/88; PULSE 87; RESP 12; O2SAT 97
[2022-10-29 15:19] VITALS: BP 167/90; PULSE 76; RESP 11; O2SAT 99
[2022-10-29 15:30] VITALS: BP 164/88; PULSE 90; RESP 18; O2SAT 98
== END 2022-10-29 15:35 | disposition home or self-care (01) ==
PROVIDERS: PCP Physician Assistant; Referring Provider Surgery; Visit Provider Surgery
PROC: 0DJD8ZZ Inspection of Lower Intestinal Tract, Via Natural or Artificial Opening Endoscopic (ICD-10-PCS; CPT 45378; principal; 2022-10-29 13:30)
DX: K59.00 Constipation, unspecified (principal); R19.5 Other fecal abnormalities; Z20.822 Contact with and (suspected) exposure to COVID-19; E11.9 Type 2 diabetes mellitus without complications; Z79.84 Long term (current) use of oral hypoglycemic drugs; K57.30 Diverticulosis of large intestine without perforation or abscess without bleeding; D12.2 Benign neoplasm of ascending colon
CPT/HCPCS: 45385; 87635; C9803; J2704

== ENCOUNTER → 2023-06-25 11:40 | Outpatient (CLI) | payer MEDICARE, OTHER, SELFPAY ==
--- NOTE | 2023-06-25 11:46 | DI.US.S_ITS ---
PROCEDURE: US CAROTID DOPPLER BI INDICATIONS: HEADACHE/HYPERTENSION TECHNIQUE: Color and pulse Doppler interrogation was performed of both carotid systems, with image documentation and velocity measurements. COMPARISON: None. FINDINGS: Stenosis calculations are based on SRU (Society of Radiologists in Ultrasound) criteria. Right side: Brachial blood pressure: 139/82 mm Hg. Common carotid artery peak systolic velocity: 62 cm/sec. Internal carotid artery peak systolic velocity: 62 cm/sec. Internal carotid artery end diastolic velocity: 14 cm/sec. External carotid artery peak systolic velocity: 81 cm/sec. ICA/CCA peak systolic ratio: 1.0 . Luis scale imaging description: No significant plaque Percent internal carotid artery stenosis: Less than 50% stenosis . Vertebral artery: Flow direction is antegrade. Left side: Brachial blood pressure: 139/73 mm Hg. Common carotid artery peak systolic velocity: 80 cm/sec. Internal carotid artery peak systolic velocity: 72 cm/sec. Internal carotid artery end diastolic velocity: 2 cm/sec. External carotid artery peak systolic velocity: 80 cm/sec. ICA/CCA peak systolic ratio: 1.3 . Luis scale imaging description: minimal plaque. Percent internal carotid artery stenosis: Less than 50% stenosis . Vertebral artery: Flow direction is antegrade. IMPRESSION: Less than 50% stenosis of the bilateral internal carotid arteries. Dictated by: Rory Cruz M.D. on 06/25/2023 at 14:03 Approved by: Rory Cruz M.D. on 06/25/2023 at 14:05
[2023-06-25 12:21] LABS: Hematocrit 39.3 % (36-46); Hemoglobin 13.4 g/dL (12.0-16.0); Mean Corpuscular HGB Conc 34.2 % (30-36); Mean Corpuscular Hemoglobin 28.9 PG (26-34); Mean Corpuscular Volume 84.5 fL (80-100); Neutrophils Percent Auto 72.2 % (50-75); Platelet Count 257 X10^3/uL (150-400); Red Blood Cell Count 4.65 X10^6/uL (4.0-5.2); Red Cell Distribution Width 13.7 % (11.6-14.8); White Blood Cell Count 8.3 X10^3/uL (4.5-11.0)
[2023-06-25 12:22] LABS: Add Manual Diff / Slide Review NO; Basophils Absolute Auto 100 /uL (0-100); Eosinophils Absolute Auto 100 /uL (0-450); Eosinophils Percent Auto 1.5 % (2-4); Lymphocytes Absolute Auto 1700 /uL (1100-4500); Lymphocytes Percent Auto 20.8 % (25-40); Monocytes Absolute Auto 400 /uL (0-900); Monocytes Percent Auto 4.5 % (3-14); Neutrophils Absolute Auto 6000 /uL (1500-7000)
[2023-06-25 12:36] LABS: Erythrocyte Sedimentation Rate 20 MM/HR (0-20)
[2023-06-25 13:32] LABS: Hemoglobin A1C% w Est Avg Glu 7.5 % (4.0-6.0)
[2023-06-25 13:34] LABS: Alanine Aminotransferase 14 IU/L (<35); Albumin 4.2 g/dL (3.5-5.0); Albumin Globulin Ratio 1.5 (1.0-2.8); Alkaline Phosphatase 84 U/L (38-126); Aspartate Aminotransferase 18 IU/L (14-36); BUN Creatinine Ratio 25.4 (6-22); Bilirubin Total 0.4 mg/dL (0.2-1.3); Blood Urea Nitrogen 17 mg/dL (7-17); C-Reactive Protein Quant 1.3 mg/dL (<1.0); Calcium 8.8 mg/dL (8.4-10.2); Carbon Dioxide 26 mmol/L (22-32); Chloride 101 mmol/L (98-107); Cholesterol 248 mg/dL (140-199); Estimated Glomerular Filt Rate > 60 mL/min (>60); Globulin 2.8 g/dL (1.7-4.1); Glucose 188 mg/dL (80-110); HDL Cholesterol 54 mg/dL (40-60); HEMOLYSIS < 15 (0-50); LDL Cholesterol Calculated 148 mg/dL (<100); Potassium 3.2 mmol/L (3.4-5.1); Sodium 140 mmol/L (137-145); Triglycerides 228 mg/dL (35-150)
== END ==
PROVIDERS: PCP Physician Assistant; Referring Provider Physician Assistant; Visit Provider Physician Assistant
DX: G44.89 Other headache syndrome (principal); E11.9 Type 2 diabetes mellitus without complications; I10 Essential (primary) hypertension; I65.23 Occlusion and stenosis of bilateral carotid arteries
CPT/HCPCS: 36415; 80053; 80061; 83036; 85025; 85651; 86140; 93880

== ENCOUNTER → 2023-07-11 06:43 | Outpatient (CLI) | payer MEDICARE, OTHER, SELFPAY ==
--- NOTE | 2023-07-11 | DI.MRI.S_ITS ---
PROCEDURE: MR ANGIO HEAD WO CON INDICATIONS: Other headache syndrome TECHNIQUE: Noncontrast axial 3-D [id number] MR angiogram, with 3-dimensional maximum intensity projection (MIP) reformats of the internal carotid arteries and posterior circulation then performed. COMPARISON: None. FINDINGS: Image quality: Excellent. Anterior circulation: Intracranial internal carotid arteries demonstrate normal size and intraluminal flow signal. The flow within the paired anterior cerebral arteries is normal and symmetric. The flow within the middle cerebral arteries is normal and symmetric. The anterior communicating artery is seen. No stenoses, occlusions, or aneurysms. Posterior circulation: Visualized portions of the vertebral arteries demonstrate normal caliber, and join to form a normal appearing basilar artery. Near origins of the posterior cerebral arteries bilaterally. The flow within the posterior cerebral arteries is normal and symmetric. No stenoses, occlusions, or aneurysms. IMPRESSION: 1. Negative cerebral MR angiography. Dictated by: Veda Carroll M.D. on 07/11/2023 at 8:59 Approved by: Veda Carroll M.D. on 07/11/2023 at 9:00
--- NOTE | 2023-07-11 | DI.MRI.S_ITS ---
PROCEDURE: MR ANGIO NECK W CON INDICATIONS: Other headache syndrome TECHNIQUE: Axial and sagittal TruFISP through the neck. Coronal dynamic MRA after the administration of contrast in the arterial and venous phases, with rotating 3-dimensional maximum intensity projection (MIP) reformats constructed from subtraction images. COMPARISON: None. FINDINGS: Image quality: Excellent. Carotid system: Left vertebral artery arises from the arch. The origins of the common carotid arteries appear normal. The calibers and courses of the common carotid arteries are likewise normal. The carotid bifurcations appear normal bilaterally. The internal carotid arteries are widely patent up to the [place] of [place]. Posterior circulation: The right vertebral artery origin is not visualized, possibly secondary to high-grade stenosis. Left vertebral artery origin arises from the thoracic aortic arch and is patent. The more superior portions of the vertebral arteries demonstrate normal course and caliber. Vertebral arteries join to form a normal appearing basilar artery. Miscellaneous: Subclavian arteries are patent throughout. Pre-contrast images through the neck demonstrate no soft tissue abnormalities. IMPRESSION: 1. No internal carotid artery stenosis bilaterally. 2. Nonvisualized right vertebral artery origin, secondary to artifact will obscure a eli versus high-grade stenosis. 3. Patent left vertebral artery which arises from the aortic arch. Any quantitative measurements of stenosis were performed using NASCET criteria. Dictated by: Veda Carroll M.D. on 07/11/2023 at 9:08 Approved by: Veda Carroll M.D. on 07/11/2023 at 9:10
== END ==
PROVIDERS: PCP Physician Assistant; Referring Provider Physician Assistant; Visit Provider Physician Assistant
DX: G44.89 Other headache syndrome (principal)
CPT/HCPCS: 70544; 70548

== ENCOUNTER 2024-05-03 10:47 | Emergency (ER) | payer MEDICARE, OTHER, SELFPAY ==
[2024-05-03] VITALS (10 sets, daily range): BP systolic 167–182; BP diastolic 72–101; PULSE 57–73; RESP 18; TEMP 36.8; O2SAT 94–99; BMI 28.3
--- NOTE | 2024-05-03 11:16 | ED_ITS ---
HPI - Headache General Chief Complaint: Headache Stated Complaint: Headaches, couldn't stand up Time Seen by Provider: 05/03/24 11:03 Source: patient Mode of arrival: Wheelchair History of Present Illness HPI Narrative: Patient is an 78-year-old female who since falling and hitting her head about a year ago has had occasional headaches. She was currently having a headache. She stated that does feel somewhat like her prior headaches but has been going on for the past couple days. Describes it as pain in the right side of her head and behind her right eye. Has not taken anything for the symptoms. She stated that she was very unsteady on her feet specifically today. States that she does not necessarily have vertigo but just an unsteadiness. No fevers. No neck pain. No chest pain. No shortness of breath. She stated that she had imaging of her head last year and was instructed to follow-up with the vascular surgeon where she has an appointment next month. She does not know specifically why she is seeing this individual. Does not know the results of any imaging studies. Related Data Home Medications Medication Instructions Recorded Confirmed blood sugar diagnostic ##1 03/15/20 03/15/20 metformin 1,000 mg tablet 1,000 mg PO BID 03/15/20 10/29/22 amlodipine 2.5 mg tablet See Rx Instructions .Route .COMPLEX 10/29/22 10/29/22 levothyroxine 75 mcg tablet See Rx Instructions .Route .COMPLEX 10/29/22 10/29/22 (Synthroid) lisinopril 20 mg tablet 20 mg PO DAILY 10/29/22 10/29/22 meloxicam 15 mg tablet See Rx Instructions .Route .COMPLEX 10/29/22 10/29/22 sertraline 50 mg tablet 50 mg PO DAILY 10/29/22 10/29/22 simvastatin 20 mg tablet See Rx Instructions .Route .COMPLEX 10/29/22 10/29/22 Allergies Allergy/AdvReac Type Severity Reaction Status Date / Time No Known Drug Allergies Allergy Verified 10/29/22 12:22 Review of Systems Review of Systems Narrative: See HPI Patient History Medical History Herniated nucleus pulposus, L2-3 Lumbar radiculopathy Multilevel spinal stenosis Diabetes Surgical History (Updated 10/29/22 @ 12:22 by Kori Rios RN) History of tonsillectomy History of bladder suspension procedure History of carpal tunnel surgery H/O: section H/O: hysterectomy History of back surgery History of lumbar fusion Family History Father Pancreatic cancer Heart disease Mother Aneurysm Brother Diabetes mellitus Heart attack End stage kidney disease Social History household members: spouse Smoking Status: Never smoker Smoking Status: Never smoker alcohol intake frequency: holidays/special occasions only Substance Use Type: does not use Exam Initial Vital Signs Initial Vital Signs: Vital Signs Pulse Rate 73 05/03/24 10:57 Blood Pressure 182/74 H 05/03/24 10:57 Pulse Oximetry 96 05/03/24 10:57 Const General: cooperative, comfortable and No ill appearing HENMT Head: normal to inspection and normocephalic Eyes General: Yes appearance normal, both eyes and all related structures Resp Effort & Inspection: normal respiratory effort Auscultation: clear to auscultation bilaterally Cardio Rate: regular rate Rhythm: regular rhythm Skin General: no rashes or lesions noted Neuro General: patient alert, patient awake, patient oriented x3 and moves all extremities Cognition: normal cognition Speech: speech normal Sensory Exam: no sensory deficits noted Extrem General: capillary refill normal Course Orders Ordered: ED Orders 05/03/24 11:03 Complete Blood Count AUTO DIFF Stat Comprehensive Metabolic Panel Stat Lipase Stat 05/03/24 11:15 CT angio head and neck Stat CT head/brain wo con Stat Discontinued Medications Sodium Chloride (Normal Saline 0.9%) 1,000 mls @ 1,000 mls/hr IV BOLUS ONE Stop: 05/03/24 12:13 Last Admin: 05/03/24 11:31 Dose: 1,000 mls/hr Documented By: RB Ketorolac Tromethamine (Ketorolac 30 Mg/Ml Vial) 30 mg IV NOW ONE Stop: 05/03/24 11:15 Last Admin: 05/03/24 11:30 Dose: 30 mg Documented By: RB Vital Signs Vital signs: Vital Signs - 8 hr 05/03/24 10:57 05/03/24 10:57 05/03/24 11:00 Temperature Pulse Rate 73 Respiratory Rate Blood Pressure 182/74 H 178/76 H Pulse Oximetry 96 Oxygen Delivery Method 05/03/24 11:00 05/03/24 11:01 05/03/24 11:30 Temperature 98.2 F Pulse Rate 72 71 63 Respiratory Rate 18 Blood Pressure 178/76 H Pulse Oximetry 95 95 94 Oxygen Delivery Method Room Air 05/03/24 11:31 05/03/24 11:31 Temperature Pulse Rate 64 Respiratory Rate Blood Pressure 169/101 H Pulse Oximetry 95 Oxygen Delivery Method MDM - Headache Medical Records Attestation: I reviewed the patient's medical records. Lab Data Attestation: I reviewed the patient's lab results. 05/03/24 11:03 05/03/24 11:03 Labs: Lab Results 05/03/24 Range/Units 11:03 WBC 9.9 (4.5-11.0) X10^3/uL RBC 3.90 L (4.0-5.2) X10^6/uL Hgb 12.4 (12.0-16.0) g/dL Hct 35.2 L (36-46) % MCV 90.0 (80-100) fL MCH 31.9 (26-34) PG MCHC 35.4 (30-36) % RDW 13.2 (11.6-14.8) % Plt Count 294 (150-400) X10^3/uL Neut % (Auto) 68.6 (50-75) % Lymph % (Auto) 19.5 L (25-40) % [place] % (Auto) 5.5 (3-14) % Eos % (Auto) 5.5 H (2-4) % Baso % (Auto) 0.9 (0-2) % Neut # (Auto) 6800 (8216-6506) /uL Lymph # (Auto) 1900 (9414-5635) /uL [place] # (Auto) 500 (0-900) /uL Eos # (Auto) 500 H (0-450) /uL Baso # (Auto) 100 (0-100) /uL Sodium 137 (137-145) mmol/L Potassium 3.9 (3.4-5.1) mmol/L Chloride 106 (98-107) mmol/L Carbon Dioxide 24 (22-32) mmol/L BUN 15 (7-17) mg/dL Creatinine 0.65 (0.52-1.04) mg/dL Estimated GFR > 60 (>60) mL/min BUN/Creatinine Ratio 23.1 H (6-22) Glucose 203 H (80-110) mg/dL Calcium 8.8 (8.4-10.2) mg/dL Total Bilirubin 0.8 (0.2-1.3) mg/dL AST 20 (14-36) IU/L ALT 13 (<35) IU/L Alkaline Phosphatase 76 (38-126) U/L Total Protein 7.1 (6.3-8.2) g/dL Albumin 3.9 (3.5-5.0) g/dL Globulin 3.2 (1.7-4.1) g/dL Albumin/Globulin Ratio 1.2 (1.0-2.8) Lipase 49 (23-300) U/L Imaging Data CTA - brain/neck: Radiologist's Impression: PROCEDURE: CT ANGIO HEAD AND NECK INDICATIONS: Posterior headache with dizziness TECHNIQUE: After the administration of intravenous contrast, 1 mm thick sections acquired from the aortic arch through the [place] of [place]. 3-dimensional ttibadn-xaagbgjft-buofksuybu (MIP) and/or volume rendering reformats were acquired of the central intracranial vasculature and neck separately. For radiation dose reduction, the following was used: automated exposure control, adjustment of mA and/or kV according to patient size. COMPARISON: [facility], CT, CT HEAD/BRAIN WO CON, 05/03/2024, 12:12. FINDINGS: Image quality: Diagnostic. BRAIN: CSF spaces: Ventricles are normal in size and shape. Basal cisterns are patent. No extra-axial fluid collections. Brain: No significant abnormality of the brain can be seen. Skull and face: Calvarium and facial bones appear intact, without suspicious lesions. Orbits appear normal. Sinuses: Sinuses and mastoids are clear. HEAD CT ANGIOGRAPHY: Anterior circulation: Intracranial internal carotid arteries demonstrate mild atherosclerotic calcifications without significant stenosis. The flow within the paired anterior cerebral arteries is normal and symmetric. The flow within the middle cerebral arteries is normal and symmetric. The anterior communicating artery is seen. No aneurysms are seen. Posterior circulation: Visualized portions of the vertebral arteries demonstrate normal caliber, and join to form a normal appearing basilar artery. type origin of the right posterior cerebral artery, a normal variant. Flow within the posterior cerebral arteries is normal and symmetric. No aneurysms are seen. NECK CT ANGIOGRAPHY: Carotid system: The great vessels demonstrate a conventional anatomy as they arise from the aortic arch. The origins of the common carotid arteries appear patent. The common carotid arteries demonstrate normal caliber and courses. The bifurcation regions are both widely patent. The internal carotid arteries demonstrate normal calibers and courses. Posterior circulation: The origins of the vertebral arteries both appear widely patent. The more superior extracranial portions of both vertebral arteries also demonstrate normal courses and calibers. They join to form a normal appearing basilar artery. Soft tissues: Visualized neck soft tissues demonstrate no suspicious abnormalities. Bones: No suspicious bony lesions. Multilevel degenerative changes are seen in the included spine. IMPRESSION: 1. No significant intracranial arterial abnormality is seen. 2. No significant abnormality is seen within the arteries of the neck. Any quantitative measurements of stenosis were performed using NASCET criteria. CT scan - head: Radiologist's Impression: PROCEDURE: CT HEAD/BRAIN WO CON INDICATIONS: Posterior headache with dizziness TECHNIQUE: Noncontrast 4.5 mm thick angled axial sections acquired from the foramen magnum to the vertex, with coronal and sagittal reformats. For radiation dose reduction, the following was used: automated exposure control, adjustment of mA and/or kV according to patient size. COMPARISON: [facility], CT, HEAD WITHOUT CONTRAST, 09/15/2014, 12:15. FINDINGS: Image quality: Diagnostic. CSF spaces: Basal cisterns are patent. No extra-axial fluid collections. The ventricles are symmetric in size and shape. Brain: No acute intracranial hemorrhage or mass effect. There is mild cerebral volume loss for age, with resultant ventricular and sulcal prominence. There are periventricular and deep white matter chronic small vessel ischemic changes. There is intracranial internal carotid artery atherosclerosis. Skull and face: Calvarium and visualized facial bones appear intact, without suspicious lesions. Sinuses: Visualized sinuses and mastoids are clear. IMPRESSION: No acute intracranial pathology. MDM Narrative Medical decision making narrative: Patient has an unremarkable neurologic exam. Alert and oriented x3. Is afebrile. Low suspicion for meningitis. Her head CT and CTA of the head and neck are unremarkable. I did review the prior medical record and the MRA that she had of her head and neck from the end of last year seemed to be relatively unremarkable. She was told by her primary doctor that she needs to follow up with vascular surgery based on the results of this. I told her that she should keep this appointment. I think we should hold on further workup for now she now reports an almost complete resolution of her symptoms after the Toradol. She can continue to take Tylenol and ibuprofen as needed. She was given return precautions. She expressed understanding and agreement. Discharge Plan Departure Patient Disposition: Home Clinical Impression: Headache Instructions: DI for Headache Activity Restrictions/Additional Instructions: You can take another dose of Tylenol and or ibuprofen this evening if your headache is persistent. Keep all of your scheduled medical appointments. Return to the emergency department for new or worsening symptoms. Prescriptions: No Action lisinopril 20 mg tablet 20 mg PO DAILY amlodipine 2.5 mg tablet See Rx Instructions .ROUTE .COMPLEX Rx Instructions: b/p sertraline 50 mg tablet 50 mg PO DAILY meloxicam 15 mg tablet See Rx Instructions .ROUTE .COMPLEX Rx Instructions: arthritis simvastatin 20 mg tablet See Rx Instructions .ROUTE .COMPLEX Rx Instructions: cholestrol levothyroxine [Synthroid] 75 mcg tablet See Rx Instructions .ROUTE .COMPLEX Rx Instructions: hypothyroid metformin 1,000 mg tablet 1,000 mg PO BID (DME) blood sugar diagnostic Strip See Rx Instructions .ROUTE .MEDSUPPLY Qty: 1 Rx Instructions: As directed Referrals: Simin Augustine PA-C [Primary Care Provider] - Stand Alone Forms: Patient Portal/API
[2024-05-03 11:22] LABS: Add Manual Diff / Slide Review NO; Basophils Absolute Auto 100 /uL (0-100); Basophils Percent Auto 0.9 % (0-2); Eosinophils Absolute Auto 500 /uL (0-450); Eosinophils Percent Auto 5.5 % (2-4); Hematocrit 35.2 % (36-46); Hemoglobin 12.4 g/dL (12.0-16.0); Lymphocytes Absolute Auto 1900 /uL (1100-4500); Lymphocytes Percent Auto 19.5 % (25-40); Mean Corpuscular HGB Conc 35.4 % (30-36); Mean Corpuscular Hemoglobin 31.9 PG (26-34); Monocytes Absolute Auto 500 /uL (0-900); Monocytes Percent Auto 5.5 % (3-14); Neutrophils Absolute Auto 6800 /uL (1500-7000); Neutrophils Percent Auto 68.6 % (50-75); Platelet Count 294 X10^3/uL (150-400); Red Cell Distribution Width 13.2 % (11.6-14.8); White Blood Cell Count 9.9 X10^3/uL (4.5-11.0)
[2024-05-03 11:28] LABS: Alanine Aminotransferase 13 IU/L (<35); Albumin 3.9 g/dL (3.5-5.0); Albumin Globulin Ratio 1.2 (1.0-2.8); Alkaline Phosphatase 76 U/L (38-126); Aspartate Aminotransferase 20 IU/L (14-36); BUN Creatinine Ratio 23.1 (6-22); Bilirubin Total 0.8 mg/dL (0.2-1.3); Blood Urea Nitrogen 15 mg/dL (7-17); Calcium 8.8 mg/dL (8.4-10.2); Carbon Dioxide 24 mmol/L (22-32); Chloride 106 mmol/L (98-107); Estimated Glomerular Filt Rate > 60 mL/min (>60); Globulin 3.2 g/dL (1.7-4.1); Glucose 203 mg/dL (80-110); HEMOLYSIS 28 (0-50); Lipase 49 U/L (23-300); Potassium 3.9 mmol/L (3.4-5.1); Sodium 137 mmol/L (137-145); Total Protein 7.1 g/dL (6.3-8.2)
[2024-05-03] MEDS: KETOROLAC 30 MG/ML VIAL IV (11:30)
[2024-05-03] MEDS: SODIUM CHLORIDE 0.9% 1,000 ML 1000 ML IV (11:31)
== END 2024-05-03 13:19 | disposition home or self-care (01) ==
PROVIDERS: Emergency Provider Emergency Medicine; PCP Physician Assistant
DX: R51.9 Headache, unspecified (principal)
CPT/HCPCS: 36415; 70450; 70496; 70498; 80053; 83690; 85025; 96374; 99284; J1885; Q9967

== ENCOUNTER → 2024-10-18 09:46 | Outpatient (CLI) | payer MEDICARE, OTHER, SELFPAY ==
--- NOTE | 2024-10-18 09:49 | DI.MRI.S_ITS ---
PROCEDURE: MR CERVICAL SPINE WO CON INDICATIONS: NECK PAIN,HX LUMBAR LAMINECTOMY TECHNIQUE: Noncontrast sagittal T1 spin echo and T2 fast spin echo, sagittal STIR, foraminal oblique sagittal T2 fast spin echo, and axial gradient echo or T2 fast spin echo through the cervical spine. COMPARISON: [facility], MR, MR LUMBAR SPINE WO CON, 10/18/2024, 10:08. [facility], CT, CT ANGIO HEAD AND NECK, 05/03/2024, 12:12. FINDINGS: Image quality: Diagnostic, with note made of motion artifact. Alignment and Curvature: There is normal bony alignment. Bone Marrow: Marrow demonstrates normal overall signal. Spinal Cord: Visualized spinal cord has normal size and signal. No cerebellar tonsillar herniation. Paraspinous Soft Tissues: No paravertebral masses. Prevertebral soft tissues are normal in thickness. A mucous retention cyst is incidentally noted within the right maxillary sinus. There is moderate right mastoid air cell fluid seen and there is mild left mastoid air cell fluid seen. C2-C3: Mild loss of disc height is seen. Loss of disc signal is seen. A mild degree of generalized disc osteophyte complex is seen. Mild facet joint hypertrophy is seen. No significant neural foraminal or central canal narrowing can be seen. C3-C4: The disc height is well-preserved. Loss of disc signal is seen at this level. A mild degree of generalized disc osteophyte complex is seen. Mild to moderate facet hypertrophy can be seen. There is cxzv-[id number]-nscvvzjo right-sided and moderate left-sided neural foraminal narrowing. No significant central canal narrowing is seen C4-C5: At least moderate loss of disc height and disc signal can be seen. Moderate generalized disc osteophyte complex is seen. There is a central disc osteophyte protrusion. Mild to moderate facet hypertrophy is seen. There is moderate to severe right-sided and at least moderate left-sided neural foraminal narrowing. Moderate central canal narrowing is seen. There is associated mass effect upon the ventral spinal cord. C5-C6: At least moderate loss of disc height and disc signal can be seen. Moderate generalized disc osteophyte complex is seen. There is a central disc osteophyte protrusion. Moderate facet joint hypertrophy is seen. There is moderate to severe bilateral neural foraminal narrowing seen. At least moderate central canal narrowing is seen, with associated mass effect upon the ventral spinal cord. C6-C7: Moderate loss of disc height is seen. Loss of disc signal is seen. Moderate generalized disc osteophyte complex is seen. Mild facet joint hypertrophy is seen. Moderate bilateral neural foraminal narrowing is seen. Mild to moderate central canal narrowing is seen. C7-T1: The disc height is well-preserved. Loss of disc signal is seen at this level. A mild degree of generalized disc osteophyte complex is seen. Mild facet joint hypertrophy is seen. No significant neural foraminal or central canal narrowing can be seen. IMPRESSION: Multiple levels of cervical spine degenerative change can be seen, which are overall worst at the C5-C6 level. Additional findings: Right maxillary sinus mucous retention cyst Bilateral mastoid air cell fluid, right worse than left Dictated by: Baljeet Fagan M.D. on 10/18/2024 at 13:48 Approved by: Baljeet Fagan M.D. on 10/18/2024 at 13:52
--- NOTE | 2024-10-18 09:49 | DI.MRI.S_ITS ---
PROCEDURE: MR LUMBAR SPINE WO CON INDICATIONS: NECK PAIN,HX LUMBAR LAMINECTOMY TECHNIQUE: Noncontrast sagittal T1 spin echo and T2 fast echo, sagittal STIR, and T2 fast spin echo through the lumbar spine. In cases with scoliosis, additional coronal T2 fast spin echo may be performed. COMPARISON: [facility], MR, L-SPINE WITHOUT CONTRAST, 07/30/2016, 13:02. [facility], MR, MR LUMBAR SPINE WO CON, 03/24/2020, 12:55. [facility], MR, MR CERVICAL SPINE WO CON, 10/18/2024, 10:08. FINDINGS: Image quality: There is artifact associated with the metallic hardware. Alignment and Curvature: Mild levoconvex scoliotic curvature is noted. There is minimal retrolisthesis seen at L1-L2, L2-L3 and L3-L4. Bone Marrow: Marrow is of normal overall signal. No acute vertebral body compression fractures. Spinal Cord: Conus medullaris terminates at the L1 level. Visualized cord demonstrates normal signal and size. Paraspinous Soft Tissues: No paravertebral masses. Postoperative changes are seen, with bilateral pedicle screws L2 through L5. Vertical fixation rods are seen. Disc spacers are seen throughout the fused region. There has been removal of portions of the posterior elements. T12-L1: Nikc-ve-bdugzsqd loss of disc height and disc signal can be seen. Mild generalized disc bulge is seen. There is a superimposed central disc protrusion. No significant neural foraminal or central canal narrowing can be seen. These imaging findings have progressed compared to the prior study. L1-L2: At least moderate loss of disc height and disc signal can be seen. Mild to moderate disc bulge is seen. There is a superimposed central disc protrusion. Mild to moderate facet hypertrophy can be seen. Mild bilateral neural foraminal narrowing is seen. Mild central canal narrowing is seen. These imaging findings have progressed compared to the prior study. L2-L3: Mild loss of disc height is seen. Loss of disc signal is seen. No significant neural foraminal narrowing is seen. The central canal is widely patent. This level is clearly improved compared to the preoperative 2019 MRI. L3-L4: Mild to moderate disc bulge is seen. Moderate facet joint hypertrophy is seen. Is there is [id number]-[id number] right-sided and no left-sided neural foraminal narrowing. Mild central canal narrowing is seen. These degenerative changes are mildly worse than in 2020. L4-L5: Mild generalized disc bulge is seen. No significant neural foraminal or central canal narrowing can be seen. L5-S1: Hqdf-lo-mvoissjg loss of disc height and disc signal can be seen. Mild to moderate disc bulge is seen, which is eccentric to the left. There is a central disc osteophyte protrusion. At least moderate facet hypertrophy can be seen. There is moderate right-sided and at least moderate left-sided neural foraminal narrowing. There is a mild degree of compression upon the exiting left L5 nerve root. Mild central canal narrowing is seen. There is mild progression compared to 2020. IMPRESSION: Postoperative changes are seen, with improvement at L2-L3 compared to 2020. Since 2020, the degenerative changes are worse at T12-L1, L1-L2, L3-L4, and L5-S1. Dictated by: Baljeet Fagan M.D. on 10/18/2024 at 13:43 Approved by: Baljeet Fagan M.D. on 10/18/2024 at 13:48
== END ==
LOC: MRI 09:48
PROVIDERS: PCP Physician Assistant; Referring Provider Orthopaedic Surgery; Visit Provider Orthopaedic Surgery
DX: M47.812 Spondylosis without myelopathy or radiculopathy, cervical region (principal); M47.815 Spondylosis without myelopathy or radiculopathy, thoracolumbar region; M47.816 Spondylosis without myelopathy or radiculopathy, lumbar region; M47.817 Spondylosis without myelopathy or radiculopathy, lumbosacral region; J34.1 Cyst and mucocele of nose and nasal sinus; M51.362 Other intervertebral disc degeneration, lumbar region with discogenic back pain and lower extremity pain; M54.50 Low back pain, unspecified; M25.512 Pain in left shoulder; M50.30 Other cervical disc degeneration, unspecified cervical region; R26.89 Other abnormalities of gait and mobility; Z98.1 Arthrodesis status; Z98.890 Other specified postprocedural states
CPT/HCPCS: 72141; 72148